=== PATIENT | male | born 1955 | race Caucasian/White ===

== ENCOUNTER 2025-04-23 11:25 | Inpatient (IN) | payer MEDICARE, OTHER ==
[~2025-04-23] VITALS: Ht 172.7 cm; Wt 75.0 kg
[2025-04-23] MEDS ORDERED: DICL100G60 TP (12:05)
[2025-04-23] MEDS ORDERED: NA P133E8 PR (12:05)
[2025-04-23] MEDS ORDERED: CLON0.1T2 PO (12:05)
[2025-04-23] MEDS ORDERED: CALC500T37 PO (12:05)
[2025-04-23] MEDS ORDERED: DIVA-85 PO (12:05)
[2025-04-23] MEDS ORDERED: HYDR50TA36 PO (12:05)
[2025-04-23] MEDS ORDERED: CARV25 PO (12:05)
[2025-04-23 13:24] LABS: PLATELET COUNT (AUTO) 180 K/uL (150-450); RED BLOOD CELL COUNT(AUTO) 3.18 MIL/uL (4.50-5.90); RED CELL DISTRIBUTION WIDTH 14.5 % (11.5-14.5); WHITE BLOOD COUNT (AUTO) 5.6 K/uL (4.5-11.0)
[2025-04-23 13:34] LABS: CALCIUM, TOTAL 8.5 mg/dL (8.8-10.5); CREATININE 8.28 mg/dL (0.60-1.30); GLOMERULAR FILTR. RATE CALC 6.0 mL/min (>60); GLUCOSE,RANDOM 77.0 mg/dL (70-110); SODIUM SERUM 137.0 mmol/L (136-145); UREA NITROGEN, BLOOD 95.0 mg/dL (7-18)
[2025-04-23] MEDS ORDERED: ZOLPIDEM TARTRATE 10 MG TABLET PO PRN (16:30)
[2025-04-23 17:35] LABS: COVID AG,FIA SOURCE NASAL SWAB
[2025-04-23 18:48] LABS: SARS-COV2 (COVID) ANTIGEN,FIA Negative (Negative)
[2025-04-24] VITALS (11 sets, daily range): BP systolic 115–192; BP diastolic 66–125; PULSE 74–97; RESP 18–19; TEMP 97.7–98.1; O2SAT 95–96
[2025-04-24] MEDS ORDERED: ONDANSETRON HCL 4 MG/2 ML VIAL IVP PRN (12:15)
[2025-04-24 12:28] LABS: PLATELET COUNT (AUTO) 193 K/uL (150-450); RED BLOOD CELL COUNT(AUTO) 3.25 MIL/uL (4.50-5.90); RED CELL DISTRIBUTION WIDTH 14.5 % (11.5-14.5); WHITE BLOOD COUNT (AUTO) 6.5 K/uL (4.5-11.0)
[2025-04-24 12:49] LABS: CALCIUM, TOTAL 8.5 mg/dL (8.8-10.5); CREATININE 8.42 mg/dL (0.60-1.30); GLOMERULAR FILTR. RATE CALC 6.0 mL/min (>60); GLUCOSE,RANDOM 104.0 mg/dL (70-110); SODIUM SERUM 139.0 mmol/L (136-145); UREA NITROGEN, BLOOD 95.0 mg/dL (7-18)
[2025-04-24 13:01] LABS: ASPARTATE AMINOTRANSFERASE 17.0 U/L (15-37); TOTAL PROTEIN, SERUM 6.7 g/dL (6.4-8.2)
[2025-04-24] MEDS: HEPARIN SODIUM,PORCINE 5,000 UNITS/ML VIAL SQ SCH (15:20)
[2025-04-24] MEDS: ACETAMINOPHEN 325 MG TABLET PO PRN (18:09)
[2025-04-24] MEDS: DOCUSATE SODIUM 100 MG CAPSULE PO SCH (21:00)
[2025-04-25] VITALS (10 sets, daily range): BP systolic 150–179; BP diastolic 67–94; PULSE 75–96; RESP 16–18; TEMP 97.9–98.4; O2SAT 95–100
[2025-04-25] MEDS: FAMOTIDINE 20 MG TABLET PO SCH (08:29)
[2025-04-25 09:42] LABS: APPEARANCE,URINE CLEAR (CLEAR); GLUCOSE, URINE (UA) TRACE mg/dL (NEGATIVE); LEUKOCYTE ESTERASE ,URINE NEGATIVE (NEGATIVE); NITRATE,URINE NEGATIVE (NEGATIVE); OCCULT BLOOD,URINE TRACE (NEGATIVE); PH,URINE DRUG SCREEN 8.0 (5.0-8.0); SPECIFIC GRAVITIY, URINE 1.009 (1.003-1.030)
[2025-04-25 10:03] LABS: SULFOSALICYLIC ACID,URINE 4+ (Negative)
[2025-04-25 10:05] LABS: SQUAMOUS EPITHELIAL CELL,UR Rare /LPF (None Seen)
[2025-04-25 10:12] LABS: ALCOHOL, URINE DRUG SCREEN NEGATIVE (NEGATIVE); AMPHET/METH SCREEN,URINE NEGATIVE (NEGATIVE); BARBITURATE SCREEN, URINE NEGATIVE (NEGATIVE); CANNABINOID SCREEN,URINE NEGATIVE (NEGATIVE); COCAINE SCREEN,URINE NEGATIVE (NEGATIVE); METHADONE SCREEN, URINE NEGATIVE (NEGATIVE)
[2025-04-26] VITALS (14 sets, daily range): BP systolic 132–187; BP diastolic 67–127; PULSE 70–98; RESP 17–18; TEMP 97.5–98.4; O2SAT 95–98
[2025-04-26] MEDS ORDERED: SODIUM CHLORIDE 0.9% 1,000 ML ONE (10:44)
[2025-04-26] MEDS: EPOETIN ALFA 10,000 UNITS/ML 2 ML VIAL SQ SCH (15:00)
[2025-04-27 06:53] VITALS: BP 152/85; PULSE 79; RESP 18; TEMP 98.2; O2SAT 98
[2025-04-27 08:43] VITALS: BP 148/81; PULSE 89; RESP 18; TEMP 98.2; O2SAT 100
[2025-04-27] MEDS: FOLIC ACID/VIT B COMPLEX AND C TABLET PO SCH (13:30)
[2025-04-27 16:00] VITALS: BP 154/87; PULSE 81; RESP 18; TEMP 98.2; O2SAT 100
[2025-04-27 19:50] VITALS: BP 145/98; PULSE 86; RESP 18; TEMP 98.4; O2SAT 97
[2025-04-28 04:35] VITALS: BP 169/86; PULSE 75; RESP 20; TEMP 98.2; O2SAT 95
[2025-04-28 06:23] VITALS: BP 151/90; PULSE 79
[2025-04-28 08:44] VITALS: BP 162/92; PULSE 77; RESP 18; TEMP 98.1; O2SAT 98
[2025-04-28 10:28] LABS: CALCIUM, TOTAL 8.7 mg/dL (8.8-10.5); CREATININE 6.21 mg/dL (0.60-1.30); GLOMERULAR FILTR. RATE CALC 9.0 mL/min (>60); GLUCOSE,RANDOM 157.0 mg/dL (70-110); SODIUM SERUM 135.0 mmol/L (136-145); UREA NITROGEN, BLOOD 53.0 mg/dL (7-18)
[2025-04-28] MEDS: POTASSIUM CHLORIDE 10 MEQ ER TABLET PO ONE (14:07)
[2025-04-28 17:13] VITALS: BP 158/73; PULSE 78; RESP 20; TEMP 97.9; O2SAT 99
[2025-04-29] VITALS (8 sets, daily range): BP systolic 149–180; BP diastolic 86–122; PULSE 77–108; RESP 18; TEMP 98; O2SAT 99
[2025-04-29] MEDS ORDERED: SODIUM CHLORIDE 0.9% 2,000 ML ONE (10:34)
[2025-04-29] MEDS ORDERED: AMLO-258 PO (16:19)
[2025-04-29] MEDS ORDERED: DOCU-385 PO (16:20)
[2025-04-29] MEDS ORDERED: FAMO20 PO (16:21)
[2025-04-29] MEDS ORDERED: ACET-2247 PO (16:22)
== END 2025-04-29 18:25 | DRG 304 ==
LOC: EMS 11:38 → EDBEDREQ 04-24 11:52 → EDBEDREQDT 04-24 11:52 → EDBEDREQSVC 04-24 11:52 → EDBEDREQTM 04-24 11:52 → EDH 04-24 12:02 → 5N 04-24 13:24 → 4E 04-26 20:05 → 6S 04-26 20:25
PROVIDERS: ADMIT Internal Medicine; ATTEND Internal Medicine
PROC: 5A1D70Z Performance of Urinary Filtration, Intermittent, Less than 6 Hours Per Day (ICD-10-PCS; principal; 2025-04-24)
PROC: 5A1D70Z Performance of Urinary Filtration, Intermittent, Less than 6 Hours Per Day (ICD-10-PCS; 2025-04-26)
PROC: 5A1D70Z Performance of Urinary Filtration, Intermittent, Less than 6 Hours Per Day (ICD-10-PCS; 2025-04-29)
DX: I16.0 Hypertensive urgency (principal); N18.6 End stage renal disease; I12.0 Hypertensive chronic kidney disease with stage 5 chronic kidney disease or end stage renal disease; F25.0 Schizoaffective disorder, bipolar type; Z20.822 Contact with and (suspected) exposure to COVID-19; K21.9 Gastro-esophageal reflux disease without esophagitis; D63.8 Anemia in other chronic diseases classified elsewhere; Z91.158 Patient's noncompliance with renal dialysis for other reason; Z99.2 Dependence on renal dialysis
CPT/HCPCS: 80048; 80053; 80307; 81001; 81002; 84132; 85025; 87340; 90935; 93005; 99285; G0480; J0360; J0885; J1644; J7030